=== PATIENT | female | born 1955 | race Caucasian/White ===

== ENCOUNTER 2017-06-13 06:19 | Day surgery (SDC) | payer SELFPAY ==
[~2017-06-13 06:19] MED LIST: Lactated Ringers 1,000 ML IV SCH; ceFAZolin 2 GM in Premix Bag 1 BAG IV ONE
--- NOTE | 2017-06-13 07:14 | PCM.PREANE ---
Preanesthetic Assessment - Anesthesia/Transfusion/Family Hx Anesthesia History: Prior Anesthesia Without Reaction Family History of Anesthesia Reaction: No Transfusion History: No Prior Transfusion(s) Intubation History: Unknown - Physical Assessment O2 Sat by Pulse Oximetry: 97 Respiratory Rate: 16 Vital Signs: Last Vital Signs Temp 36.1 C 06/13/17 06:30 Pulse 69 06/13/17 06:30 Resp 16 06/13/17 06:30 BP 173/98 H 06/13/17 06:30 Pulse Ox 97 06/13/17 06:30 Height: 1.8 m Weight: 99.337 kg ASA Class: 2 Mental Status: Alert & Oriented x3 Airway Class: Mallampati = 2 Dentition: Reports: Normal Dentition, Broken Tooth/Teeth (2 teeth on the back side) Thyro-Mental Finger Breadths: 3 Mouth Opening Finger Breadths: 2 ROM/Head Extension: Full Lungs: Clear to Auscultation, Normal Respiratory Effort Cardiovascular: Regular Rate, Regular Rhythm - Allergies Allergies/Adverse Reactions: Allergies Allergy/AdvReac Type Severity Reaction Status Date / Time No Known Allergies Allergy Verified 06/07/17 13:05 - Blood Blood Available: No - Anesthesia Plan Pre-Op Medication Ordered: None - Acknowledgements Anesthesia Type Planned: General Anesthesia Pt an Appropriate Candidate for the Planned Anesthesia: Yes Alternatives and Risks of Anesthesia Discussed w Pt/Guardian: Yes Pt/Guardian Understands and Agrees with Anesthesia Plan: Yes PreAnesthesia Questionnaire HEENT History: Reports: Other (See Below) Other HEENT History: wears glasses Cardiovascular History: Reports: Other (See Below) (h/o hypertension 'long time ago') Gastrointestinal History: Reports: Other (See Below) Other Gastrointestinal History: occasional heartburn Genitourinary History: Reports: None Psychiatric History: Reports: Other (See Below) (h/o depression) Endocrine/Metabolic History: Reports: Obesity/BMI 30+, Other (See Below) (h/o hyperthyroidism long time ago) - Past Surgical History Head Surgeries/Procedures: Reports: None Female Surgical History: Reports: Hysterectomy - SUBSTANCE USE Smoking Status *Q: Never Smoker Recreational Drug Type: Reports: Marijuana/Hashish Recreational Drug Last Use: 06/07/17 - HOME MEDS Home Medications: Home Meds . [No Known Home Meds] 06/07/17 [History] - CURRENT (IN HOUSE) MEDS Current Meds: Current Medications Lactated Ringer's (Ringers, Lactated) 1,000 mls @ 125 mls/hr IV ASDIRECTED [facility] Last Admin: 06/13/17 06:37 Dose: 125 mls/hr Discontinued Medications Cefazolin Sodium/Dextrose 2 gm (/ Premix) 50 mls @ 100 mls/hr IV ONETIME ONE Stop: 06/13/17 05:29
[2017-06-13] MEDS ORDERED: Bupivacaine 0.25%/EPINEPHrine 1:200,000 10 ML SDV ONE ×2 (07:19→09:06)
[2017-06-13] MEDS ORDERED: Propofol 200 MG/20 ML SDV ONE (07:32)
[2017-06-13] MEDS ORDERED: Ondansetron 4 MG/2 ML SDV ONE (07:32)
[2017-06-13] MEDS ORDERED: Lidocaine 2% 5 ML SDV ONE (07:32)
[2017-06-13] MEDS ORDERED: fentaNYL 250 MCG/5 ML SDV ONE (07:32)
[2017-06-13] MEDS ORDERED: Midazolam 1 MG/ML 2 ML SDV ONE (07:32)
[2017-06-13] MEDS ORDERED: Acetaminophen/oxyCODONE 325-7.5 MG Tab PO ONE (09:25)
[2017-06-13] MEDS ORDERED: ceFAZolin 1 GM Vial ONE ×2 (09:29→09:30)
[2017-06-13 10:06] VITALS: BP 136/74
--- NOTE | 2017-06-13 12:24 | OR ---
SURGEON: Sacha Blackburn MD DATE OF PROCEDURE: 06/13/2017 PREOPERATIVE DIAGNOSIS: Back mass. POSTOPERATIVE DIAGNOSIS: Back mass. PROCEDURE PERFORMED: Excision biopsy. COMPLICATIONS: None. FINDINGS: A very large back mass about a size of at least 2-1/2 pound right in the midline neck base on the back and poorly encapsulated. PROCEDURE IN DETAIL: The patient was taken to the operating room, placed in supine position. Upon induction of general endotracheal, the patient was re-positioned in a prone position and upper back was prepped and draped in a sterile fashion and time-out was being called, the patient identified, procedure identified, and antibiotic given. Procedure was then started. After assessment of appropriate landmark, a transverse incision right on top of the mass was made and this was carefully dissected down to the mass, which appears of poorly encapsulated lipoma and carefully lifted up from the back fascia and was sent for pathology and followed with irrigation and good hemostasis achieved. The wound was then closed with 2- 0 Vicryl and 2-0 Ethilon and followed appropriate dressing. The patient was re- positioned in the supine position, awakened, extubated, and transferred to recovery room in hemodynamically stable condition. The patient tolerated the procedure well. There were no intraoperative complications. Dr. Blackburn was present through the whole procedure. The back mass is measured by at least 2-1/2 pound and close to about 12 x 8 cm. MARII / CLAY /[id number]
--- NOTE | 2017-06-13 14:40 | PCM.OPNOTE ---
- General Post-Op/Procedure Note Date of Surgery/Procedure: 06/13/17 Operative Procedure(s): back mass excisional bx Findings: large poorly encapsulated lipoma, 12 X 8 cm; [id number] Pre Op Diagnosis: back mass Post-Op Diagnosis: Same Anesthesia Technique: General ET Tube, Spinal Primary Surgeon: Sacha Blackburn Pathology: sent Complications: None Condition: Good Free Text/Narrative:: Intake & Output 06/12/17 06/13/17 06/13/17 22:59 06:59 14:59 Intake Total 1200 Balance 1200
== END 2017-06-13 10:11 | disposition home or self-care (01) ==
LOC: MW.SDS 06:19
PROVIDERS: ATTEND Surgery
DX: D17.1 Benign lipomatous neoplasm of skin and subcutaneous tissue of trunk (principal); F12.90 Cannabis use, unspecified, uncomplicated; E66.9 Obesity, unspecified; I10 Essential (primary) hypertension; E03.9 Hypothyroidism, unspecified; F32.9 Major depressive disorder, single episode, unspecified; Z90.710 Acquired absence of both cervix and uterus; Z79.899 Other long term (current) drug therapy
CPT/HCPCS: 21933; 88304; J0690; J2250; J2405; J3010; J7120; 00300; J2704

== ENCOUNTER 2017-07-20 21:12 | Emergency (ER) | payer SELFPAY ==
[2017-07-20] MEDS ORDERED: Ondansetron 4 MG/2 ML SDV IVPUSH ONE (21:18)
[2017-07-20] MEDS ORDERED: Sodium Chloride 0.9% 1,000 ML IV ONE (21:18)
--- NOTE | 2017-07-20 21:19 | EDM.PDOC ---
ED HPI GENERAL MEDICAL PROBLEM - General Chief Complaint: Abdominal Pain Stated Complaint: VOMITING Time Seen by Provider: 07/20/17 21:19 Source of Information: Reports: Patient - History of Present Illness INITIAL COMMENTS - FREE TEXT/NARRATIVE: HISTORY AND PHYSICAL: History of present illness: [] 62-year-old female presents with nausea vomiting diarrhea intermittently over the last 6 weeks some food association noted unnecessarily any pain originally on coming in and intermittently she does notice some right upper quadrant pain that is not as much endplate tonight she did have a 2 out of 10 discomfort she felt was more from vomiting Currently nausea and vomiting are improved no fever chest pain shortness breath headache or palpitations no urine symptoms Review of systems: As per history of present illness and below otherwise all systems reviewed and negative. Past medical history: As per history of present illness and as reviewed below otherwise noncontributory. Surgical history: As per history of present illness and as reviewed below otherwise noncontributory. Social history: No reported history of drug or alcohol abuse. Family history: As per history of present illness and as reviewed below otherwise noncontributory. Physical exam: HEENT: Atraumatic, normocephalic, pupils reactive, negative for conjunctival pallor or scleral icterus, mucous membranes moist, throat clear, neck supple, nontender, trachea midline. Lungs: Clear to auscultation, breath sounds equal bilaterally, chest nontender. Heart: S1S2, regular, negative for clicks, rubs, or JVD. Abdomen: Soft, nondistended, nontender. Negative for masses or hepatosplenomegaly. Negative for costovertebral tenderness. Pelvis: Stable nontender. Genitourinary: Deferred. Rectal: Deferred. Extremities: Atraumatic, negative for cords or calf pain. Neurovascular unremarkable. Neuro: Awake, alert, oriented. Cranial nerves II through XII unremarkable. Cerebellum unremarkable. Motor and sensory unremarkable throughout. Exam nonfocal. Diagnostics: []Lab as below Ultrasound right upper quadrant Therapeutics: []Normal saline 1 L bolus Toradol 30 mg IV Zofran 8 mg IV Impression: []Biliary colic, mild Definitive disposition and diagnosis as appropriate pending reevaluation and review of above. abdominal Pain Score (Numeric/FACES): 6 - Related Data Allergies Allergy/AdvReac Type Severity Reaction Status Date / Time No Known Allergies Allergy Verified 07/20/17 21:15 Home Meds: Home Meds . [No Known Home Meds] 06/07/17 [History] Past Medical History HEENT History: Reports: Other (See Below) Other HEENT History: wears glasses Cardiovascular History: Reports: Other (See Below) (h/o hypertension 'long time ago') Gastrointestinal History: Reports: Other (See Below) Other Gastrointestinal History: occasional heartburn Genitourinary History: Reports: None Psychiatric History: Reports: Other (See Below) (h/o depression) Endocrine/Metabolic History: Reports: Obesity/BMI 30+, Other (See Below) (h/o hyperthyroidism long time ago) - Past Surgical History Head Surgeries/Procedures: Reports: None Female Surgical History: Reports: Hysterectomy Social & Family History - Tobacco Use Smoking Status *Q: Never Smoker - Recreational Drug Use Drug Use in Last 12 Months: Yes Recreational Drug Type: Reports: Marijuana/Hashish Recreational Drug Use Frequency: Socially Recreational Drug Last Use: 06/07/17 ED ROS GENERAL - Review of Systems Review Of Systems: ROS reveals no pertinent complaints other than HPI. ED EXAM, GENERAL - Physical Exam Exam: See Below Course - Vital Signs Last Recorded V/S: Last Vital Signs Temp 35.8 C 07/20/17 21:27 Pulse 89 07/20/17 21:27 Resp 20 07/20/17 21:27 BP 150/91 H 07/20/17 21:27 Pulse Ox 100 07/20/17 21:27 - Orders/Labs/Meds Orders: Active Orders 24 hr Category Date Time Status Abdomen Ltd [US] Stat Exams 07/20/17 22:39 Taken Labs: Laboratory Tests 07/20/17 07/20/17 07/20/17 Range/Units 21:10 21:10 21:10 WBC 8.27 (4.0-11.0) K/uL RBC 5.15 (4.30-5.90) M/uL Hgb 17.2 H (12.0-16.0) g/dL Hct 48.4 H (36.0-46.0) % MCV 94.0 (80.0-98.0) fL MCH 33.4 H (27.0-32.0) pg MCHC 35.5 (31.0-37.0) g/dL RDW Std Deviation 45.3 (28.0-62.0) fl RDW Coeff of Jaguar 13 (11.0-15.0) % Plt Count 218 (150-400) K/uL MPV 9.80 (7.40-12.00) fL Neut % (Auto) 72.4 (48.0-80.0) % Lymph % (Auto) 20.3 (16.0-40.0) % Bartholomew % (Auto) 6.5 (0.0-15.0) % Eos % (Auto) 0.7 (0.0-7.0) % Baso % (Auto) 0.1 (0.0-1.5) % Neut # (Auto) 6.0 H (1.4-5.7) K/uL Lymph # (Auto) 1.7 (0.6-2.4) K/uL Bartholomew # (Auto) 0.5 (0.0-0.8) K/uL Eos # (Auto) 0.1 (0.0-0.7) K/uL Baso # (Auto) 0.0 (0.0-0.1) K/uL Nucleated RBC % 0.0 /100WBC Nucleated RBCs # 0 K/uL Sodium 141 (136-146) mmol/L Potassium 3.3 L (3.5-5.1) mmol/L Chloride 104 (98-110) mmol/L Carbon Dioxide 22 (21-31) mmol/L BUN 17 (6.0-23.0) mg/dL Creatinine 1.0 (0.6-1.5) mg/dL Est Cr Clr Drug Dosing 65.74 mL/min Estimated GFR (MDRD) 56.4 ml/min Glucose 133 H (60-110) mg/dL Calcium 10.6 (8.8-10.8) mg/dL Total Bilirubin 1.5 (0.1-1.5) mg/dL AST 17 (5-40) IU/L ALT 17 (8-54) IU/L Alkaline Phosphatase 105 (40-150) Creatine Kinase 58 (9-236) IU/L CK-MB (CK-2) 0.7 (0-6.6) ng/ml Troponin I < 0.10 (0.0-0.29) NG/ML Total Protein 8.2 H (6.0-8.0) g/dL Albumin 4.7 (3.4-4.8) g/dL Globulin 3.5 (2.0-3.5) g/dL Albumin/Globulin Ratio 1.3 (1.3-2.8) Amylase 61 (10-90) U/L Lipase 22 (7-80) U/L Urine Color Urine Appearance Urine pH (5.0-8.0) Ur Specific [place] (1.001-1.035) Urine Protein (NEGATIVE) mg/dL Urine Glucose (UA) (NEGATIVE) mg/dL Urine Ketones (NEGATIVE) mg/dL Urine Occult Blood (NEGATIVE) Urine Nitrite (NEGATIVE) Urine Bilirubin (NEGATIVE) Urine Urobilinogen (<2.0) EU/dL Ur Leukocyte Esterase (NEGATIVE) Urine RBC (0-2/HPF) Urine WBC (0-5/HPF) Ur Epithelial Cells (NONE-FEW) Ur Renal Epithelial Cell Amorphous Sediment (NEGATIVE) Urine Bacteria (NEGATIVE) 07/20/17 Range/Units 22:18 WBC (4.0-11.0) K/uL RBC (4.30-5.90) M/uL Hgb (12.0-16.0) g/dL Hct (36.0-46.0) % MCV (80.0-98.0) fL MCH (27.0-32.0) pg MCHC (31.0-37.0) g/dL RDW Std Deviation (28.0-62.0) fl RDW Coeff of Jaguar (11.0-15.0) % Plt Count (150-400) K/uL MPV (7.40-12.00) fL Neut % (Auto) (48.0-80.0) % Lymph % (Auto) (16.0-40.0) % Bartholomew % (Auto) (0.0-15.0) % Eos % (Auto) (0.0-7.0) % Baso % (Auto) (0.0-1.5) % Neut # (Auto) (1.4-5.7) K/uL Lymph # (Auto) (0.6-2.4) K/uL Bartholomew # (Auto) (0.0-0.8) K/uL Eos # (Auto) (0.0-0.7) K/uL Baso # (Auto) (0.0-0.1) K/uL Nucleated RBC % /100WBC Nucleated RBCs # K/uL Sodium (136-146) mmol/L Potassium (3.5-5.1) mmol/L Chloride (98-110) mmol/L Carbon Dioxide (21-31) mmol/L BUN (6.0-23.0) mg/dL Creatinine (0.6-1.5) mg/dL Est Cr Clr Drug Dosing mL/min Estimated GFR (MDRD) ml/min Glucose (60-110) mg/dL Calcium (8.8-10.8) mg/dL Total Bilirubin (0.1-1.5) mg/dL AST (5-40) IU/L ALT (8-54) IU/L Alkaline Phosphatase (40-150) Creatine Kinase (9-236) IU/L CK-MB (CK-2) (0-6.6) ng/ml Troponin I (0.0-0.29) NG/ML Total Protein (6.0-8.0) g/dL Albumin (3.4-4.8) g/dL Globulin (2.0-3.5) g/dL Albumin/Globulin Ratio (1.3-2.8) Amylase (10-90) U/L Lipase (7-80) U/L Urine Color YELLOW Urine Appearance CLEAR Urine pH 7.5 (5.0-8.0) Ur Specific [place] 1.020 (1.001-1.035) Urine Protein TRACE (NEGATIVE) mg/dL Urine Glucose (UA) NEGATIVE (NEGATIVE) mg/dL Urine Ketones >=80 (NEGATIVE) mg/dL Urine Occult Blood NEGATIVE (NEGATIVE) Urine Nitrite NEGATIVE (NEGATIVE) Urine Bilirubin SMALL H (NEGATIVE) Urine Urobilinogen 2.0 H (<2.0) EU/dL Ur Leukocyte Esterase NEGATIVE (NEGATIVE) Urine RBC 0-2 (0-2/HPF) Urine WBC 0-2 (0-5/HPF) Ur Epithelial Cells FEW (NONE-FEW) Ur Renal Epithelial Cell RARE Amorphous Sediment LIGHT (NEGATIVE) Urine Bacteria FEW (NEGATIVE) Meds: Medications Discontinued Medications Generic Name Dose Route Start Last Admin Trade Name Freq PRN Reason Stop Dose Admin Sodium Chloride 1,000 mls @ 999 mls/hr 07/20/17 21:18 07/20/17 21:32 Normal Saline IV 07/20/17 22:18 999 mls/hr STAT ONE Administration Ondansetron HCl 8 mg 07/20/17 21:18 07/20/17 21:32 Zofran IVPUSH 07/20/17 21:19 8 mg ONETIME ONE Administration Departure - Departure Time of Disposition: 00:07 Disposition: Home, Self-Care 01 Condition: Good Clinical Impression: Biliary colic, Vomiting - Discharge Information Referrals: PCP,None [Primary Care Provider] - Forms: ED Department Discharge Additional Instructions: Emergency room referral for general surgery early next week approximately Monday Return if symptoms persist or worsen or fever chills sweats intractable pain should it develop Medication as prescribed [facility] - General Surgery Professional [address], [address] [place] [address] The following information is given to patients seen in the emergency department who are being discharged to home. This information is to outline your options for follow-up care. We provide all patients seen in our emergency department with a follow-up referral. The need for follow-up, as well as the timing and circumstances, are variable depending upon the specifics of your emergency department visit. If you don't have a primary care physician on staff, we will provide you with a referral. We always advise you to contact your personal physician following an emergency department visit to inform them of the circumstance of the visit and for follow-up with them and/or the need for any referrals to a consulting specialist. The emergency department will also refer you to a specialist when appropriate. This referral assures that you have the opportunity for follow-up care with a specialist. All of these measure are taken in an effort to provide you with optimal care, which includes your follow-up. Under all circumstances we always encourage you to contact your private physician who remains a resource for coordinating your care. When calling for follow-up care, please make the office aware that this follow-up is from your recent emergency room visit. If for any reason you are refused follow-up, please contact the [facility] emergency department at and asked to speak to the emergency department charge nurse. - My Orders Last 24 Hours: My Active Orders 07/20/17 22:39 Abdomen Ltd [US] Stat - Assessment/Plan Last 24 Hours: My Active Orders 07/20/17 22:39 Abdomen Ltd [US] Stat
[2017-07-21] MEDS ORDERED: Ondansetron 4 MG Tab.DIS PO ONE (00:20)
[2017-07-21 04:28] VITALS: BP 133/81
--- NOTE | 2017-07-21 09:38 | US ---
EXAM DATE: 07/20/17 PATIENT'S AGE: 62 Patient: WANDA RINALDI Facility: [place], [place] Site . Site : [id number] Study: US Abdomen [id number]/31/2017 11:22:36 PM Ordering Physician: Leyda Farr Final Report: INDICATION: Abdominal pain TECHNIQUE: Ultrasound abdomen limited. Sonographic images of the right upper quadrant were obtained using pham-scale and color Doppler images. COMPARISON: None available FINDINGS: Liver: Normal in size and echotexture. No masses. No intrahepatic biliary dilatation. Gallbladder: No evidence of cholelithiasis. Gallbladder sludge. No significant gallbladder wall thickening. Negative sonographic Camp`s sign. Common bile duct: 3 -4 mm. Pancreas: Partially obscured. Mildly heterogeneous appearance of the pancreatic body. Right kidney: 11.5 x 5.5 x 5.5 cm. No hydronephrosis. Few non shadowing echogenic foci could represent nonobstructive or vascular calcifications. Vasculature: Proximal abdominal aorta and IVC are normal. IMPRESSION: Gallbladder sludge. No evidence of cholelithiasis. Limited evaluation of the pancreas. Apparent heterogeneity of the pancreatic body. Correlate with pancreatic enzymes. No hydronephrosis. Few small nonobstructive renal calcifications are not excluded. Dictated by Allen Gregory MD @ 07/20/2017 11:37:11 PM Dictated by: Allen Gregory MD @ 07/20/2017 23:37:17 (Electronic Signature) Report Signed by Proxy. [facility] SYSTEMGodwin
== END 2017-07-21 00:25 | disposition home or self-care (01) ==
LOC: MW.ED 21:12
DX: K80.50 Calculus of bile duct without cholangitis or cholecystitis without obstruction (principal); E66.9 Obesity, unspecified; E05.90 Thyrotoxicosis, unspecified without thyrotoxic crisis or storm; Z90.710 Acquired absence of both cervix and uterus; Z68.30 Body mass index [BMI] 30.0-30.9, adult
CPT/HCPCS: 76705; 80053; 81001; 82150; 82550; 82553; 83690; 84484; 85025; 96361; 96374; 99284; A9270; J2405; J7040; 99283